=== PATIENT | female | born 1985 | race Hispanic/Latino ===

== ENCOUNTER 2018-02-21 09:27 | Observation (INO) | payer MEDICAID ==
[~2018-02-21] VITALS: Ht 152.4 cm; Wt 93.4 kg
[2018-02-21 10:12] LABS: APPEARANCE,URINE Clear (CLEAR); BILIRUBIN,URINE Negative (NEGATIVE); COLOR,URINE Yellow (YELLOW); GLUCOSE, URINE (UA) Negative (NEGATIVE); KETONES,URINE Trace mg/dL (NEGATIVE); LEUKOCYTE ESTERASE ,URINE Trace (NEGATIVE); NITRATE,URINE Negative (NEGATIVE); OCCULT BLOOD,URINE Negative (NEGATIVE); PROTEIN,URINE Negative (NEGATIVE); UROBILINOGEN,URINE 0.2 mg/dL (0.2-1.0)
[2018-02-21 10:45] LABS: BACTERIA,URINE Few /HPF (None Seen); WBC,URINE 0-1 /HPF (0-1)
== END 2018-02-21 11:13 | disposition home or self-care (01) ==
LOC: EDH 09:27 → LDH 09:46
PROVIDERS: ADMIT Obstetrics & Gynecology; ATTEND Obstetrics & Gynecology
DX: O26.893 Other specified pregnancy related conditions, third trimester (principal); R10.30 Lower abdominal pain, unspecified; Z3A.37 37 weeks gestation of pregnancy
CPT/HCPCS: 81001; 99285; G0378

== ENCOUNTER 2018-02-22 22:27 | Inpatient (IN) | payer MEDICAID ==
[~2018-02-22] VITALS: Ht 152.4 cm; Wt 93.0 kg
[2018-02-22 22:54] VITALS: BP 118/97
[2018-02-22] MEDS ORDERED: LACTATED RINGERS 1000ML 1,000 ML IV PRN (23:00)
[2018-02-22] MEDS ORDERED: LACTATED RINGERS 1000ML IV PRN (23:00)
[2018-02-22 23:10] LABS: APPEARANCE,URINE Turbid (CLEAR); BILIRUBIN,URINE Negative (NEGATIVE); COLOR,URINE Yellow (YELLOW); GLUCOSE, URINE (UA) Negative (NEGATIVE); KETONES,URINE >=80 mg/dL (NEGATIVE); LEUKOCYTE ESTERASE ,URINE Large (NEGATIVE); NITRATE,URINE Negative (NEGATIVE); OCCULT BLOOD,URINE Large (NEGATIVE); PROTEIN,URINE POS 2+ (NEGATIVE)
[2018-02-22] MEDS ORDERED: LACTATED RINGERS 1000ML 1,000 ML IV ONE (23:17)
[2018-02-22] MEDS ORDERED: OXYTOCIN 10 USP UNITS/ML ONE (23:18)
[2018-02-22] MEDS ORDERED: LIDOCAINE HCL 1% 20 ML VIAL ONE (23:18)
[2018-02-22 23:34] LABS: BACTERIA,URINE Many /HPF (None Seen); MUCUS,URINE Few LPF (None Seen); RBC,URINE TNTC /HPF (0-1); RENAL EPITHELIAL CELLS,URINE Moderate /HPF (None Seen); SQUAMOUS EPITHELIAL CELL,UR Many /HPF (0-2); WBC,URINE TNTC /HPF (0-1)
[2018-02-23] VITALS (12 sets, daily range): BP systolic 108–125; BP diastolic 59–80
[2018-02-23] MEDS ORDERED: ACETAMINOPHEN-CODEINE 300/30MG TAB PO PRN (00:15)
[2018-02-23] MEDS ORDERED: OXYTOCIN-LR 20 UNITS/1000 ML 1,000 ML IV SCH (00:15)
[2018-02-23] MEDS ORDERED: WITCH HAZEL 1 PAD TP PRN (00:15)
[2018-02-23] MEDS ORDERED: MEASLES/MUMPS/RUBELLA VACCINE, LIVE 0.5 ML/VIAL SQ PRN (00:15)
[2018-02-23] MEDS ORDERED: BENZOCAINE/LANOLIN/ALOE VERA 60 ML AEROSOL TP PRN (00:15)
[2018-02-23] MEDS ORDERED: ACETAMINOPHEN 325 MG TAB PO PRN (00:15)
[2018-02-23] MEDS ORDERED: LANOLIN 30GM OINTMENT TP PRN (00:15)
[2018-02-23] MEDS ORDERED: DIPH,PERTUSS(ACELL),TET VAC/PF 0.5 ML VIAL IM PRN (00:15)
[2018-02-23] MEDS ORDERED: LACTATED RINGERS 1000ML 1,000 ML IV PRN (01:04)
[2018-02-23] MEDS: IBUPROFEN 800 MG TAB PO PRN ×3 (01:33→20:55)
[2018-02-23] MEDS ORDERED: OXYTOCIN 10 USP UNITS/ML ONE (01:46)
[2018-02-23] MEDS: OXYTOCIN-LR 20 UNITS/1000 ML 1,000 ML IV SCH (01:49)
[2018-02-23 02:02] LABS: HEMATOCRIT 34.7 % (36-48); MEAN CORPUSCULAR HEMOGLOBIN 27.7 pg (27.0-33.0); MEAN CORPUSCULAR HGB CONC 33.8 g/dL (32.0-36.0); MEAN CORPUSCULAR VOLUME 81.9 fL (79-99); PLATELET COUNT (AUTO) 223 K/uL (130-400); RED BLOOD CELL COUNT(AUTO) 4.24 MIL/uL (4.00-5.50); RED CELL DISTRIBUTION WIDTH 13.4 % (11.0-15.5)
[2018-02-23] MEDS ORDERED: PREN-188 PO (04:00)
[2018-02-23] MEDS: LACTATED RINGERS 1000ML 1,000 ML IV SCH ×2 (06:40)
[2018-02-23] MEDS: DOCUSATE SODIUM 100 MG CAP PO SCH ×2 (08:56→20:55)
[2018-02-23 10:18] LABS: RAPID PLASMA REAGIN NONREACTIVE (NONREACTIVE)
[2018-02-24] MEDS: OXYTOCIN-LR 20 UNITS/1000 ML 1,000 ML IV SCH (01:15)
[2018-02-24] MEDS: LACTATED RINGERS 1000ML 1,000 ML IV SCH ×2 (02:40→09:20)
[2018-02-24 03:09] VITALS: BP 97/58
[2018-02-24 06:41] LABS: HEMATOCRIT 30.2 % (36-48); MEAN CORPUSCULAR VOLUME 82.2 fL (79-99); PLATELET COUNT (AUTO) 217 K/uL (130-400); RED BLOOD CELL COUNT(AUTO) 3.67 MIL/uL (4.00-5.50); RED CELL DISTRIBUTION WIDTH 13.9 % (11.0-15.5)
[2018-02-24 07:40] VITALS: BP 117/72
[2018-02-24] MEDS: DOCUSATE SODIUM 100 MG CAP PO SCH (10:00)
[2018-02-24] MEDS: IBUPROFEN 800 MG TAB PO PRN (10:01)
[2018-02-24 11:20] LABS: HEPATITIS Bs ANTIGEN SCREEN P Negative (Negative)
[2018-02-24 11:48] VITALS: BP 121/73
== END 2018-02-24 13:50 | disposition home or self-care (01) | DRG 560 ==
LOC: EDH 22:27 → OBSVTOIN 22:28 → LDH 22:28 → WSH 02-23 00:50
PROVIDERS: ADMIT Obstetrics & Gynecology; ATTEND Obstetrics & Gynecology
PROC: 10907ZC Drainage of Amniotic Fluid, Therapeutic from Products of Conception, Via Natural or Artificial Opening (ICD-10-PCS; principal; 2018-02-22)
PROC: 10E0XZZ Delivery of Products of Conception, External Approach (ICD-10-PCS; 2018-02-22)
PROC: 3E0234Z Introduction of Serum, Toxoid and Vaccine into Muscle, Percutaneous Approach (ICD-10-PCS; 2018-02-22)
PROC: 3E0134Z Introduction of Serum, Toxoid and Vaccine into Subcutaneous Tissue, Percutaneous Approach (ICD-10-PCS; 2018-02-22)
DX: O69.81X0 Labor and delivery complicated by cord around neck, without compression, not applicable or unspecified (principal); O43.123 Velamentous insertion of umbilical cord, third trimester; Z37.0 Single live birth; Z3A.37 37 weeks gestation of pregnancy; Z23 Encounter for immunization
CPT/HCPCS: 36415; 81001; 85027; 86592; 86701; 86850; 86900; 86901; 87340; 87390; 88305; G0378; J2590; J7120